=== PATIENT | male | born 1950 | race Caucasian/White ===

== ENCOUNTER 2021-08-02 07:56 | Outpatient (RCR) | payer MEDICARE, OTHER | END 2021-08-12 13:47 | LOC: OPPGERO 07:56 | DX: F41.1 Generalized anxiety disorder (principal); Z83.3 Family history of diabetes mellitus; Z81.1 Family history of alcohol abuse and dependence; Z63.5 Disruption of family by separation and divorce; Z82.49 Family history of ischemic heart disease and other diseases of the circulatory system ==

== ENCOUNTER → 2021-08-09 | Day surgery (SDC) | payer MEDICARE, OTHER | END | disposition home or self-care (01) | LOC: MSO 08:00 | DX: Z12.11 Encounter for screening for malignant neoplasm of colon (principal); Z86.010 Personal history of colon polyps; K63.5 Polyp of colon; I10 Essential (primary) hypertension; E10.9 Type 1 diabetes mellitus without complications; E66.9 Obesity, unspecified | CPT/HCPCS: 00811; J2704; J7120 ==

== ENCOUNTER 2021-08-13 09:37 | Outpatient (RCR) | payer MEDICARE, OTHER | END 2021-09-12 18:01 | disposition home or self-care (01) | LOC: OPPGERO 09:37 | DX: F41.1 Generalized anxiety disorder (principal); E11.9 Type 2 diabetes mellitus without complications; F17.210 Nicotine dependence, cigarettes, uncomplicated; F10.20 Alcohol dependence, uncomplicated; Z63.5 Disruption of family by separation and divorce; Z81.1 Family history of alcohol abuse and dependence ==

== ENCOUNTER 2021-11-15 07:50 | Outpatient (RCR) | payer MEDICARE, OTHER | END 2021-12-13 11:59 | disposition home or self-care (01) | LOC: OPPGERO 07:50 | DX: F41.1 Generalized anxiety disorder (principal); E11.9 Type 2 diabetes mellitus without complications; Z79.84 Long term (current) use of oral hypoglycemic drugs; Z63.4 Disappearance and death of family member; F17.200 Nicotine dependence, unspecified, uncomplicated ==